=== PATIENT | female | born 1950 | race Caucasian/White ===

== ENCOUNTER 2016-07-20 14:00 | Outpatient (CLI) | payer MEDICARE, OTHER | END 2016-07-20 14:01 | disposition home or self-care (01) | LOC: HPCALD 14:00 | PROVIDERS: ATTEND Family Medicine | DX: M54.9 Dorsalgia, unspecified (principal); R82.90 Unspecified abnormal findings in urine; R10.9 Unspecified abdominal pain | CPT/HCPCS: 87077; 87086 ==

== ENCOUNTER 2016-08-14 10:12 | Outpatient (CLI) | payer MEDICARE, OTHER | END 2016-08-14 10:13 | disposition home or self-care (01) | LOC: HPCALD 10:12 | PROVIDERS: ATTEND Family Medicine | DX: E03.9 Hypothyroidism, unspecified (principal) | CPT/HCPCS: 36415; 84443 ==

== ENCOUNTER 2016-09-10 19:00 | Emergency (ER) | payer MEDICARE, OTHER ==
[2016-09-10] MEDS ORDERED: Tetracaine HCl 0.5% Ophth Soln 2 ML Bottle ONE (20:05)
[2016-09-10] MEDS ORDERED: Fluorescein Opthalmic Strip ONE (20:06)
== END 2016-09-10 20:57 | disposition home or self-care (01) ==
LOC: BURERS 19:00
DX: S05.01XA Injury of conjunctiva and corneal abrasion without foreign body, right eye, initial encounter (principal); Z86.73 Personal history of transient ischemic attack (TIA), and cerebral infarction without residual deficits; I10 Essential (primary) hypertension; Z87.891 Personal history of nicotine dependence; Z79.899 Other long term (current) drug therapy; X58.XXXA Exposure to other specified factors, initial encounter; Y92.009 Unspecified place in unspecified non-institutional (private) residence as the place of occurrence of the external cause
CPT/HCPCS: 99283

== ENCOUNTER 2017-02-06 07:43 | Outpatient (CLI) | payer MEDICARE, OTHER | END 2017-02-06 07:44 | disposition home or self-care (01) | LOC: BURLAB 07:43 | PROVIDERS: ATTEND Family Medicine | DX: R10.9 Unspecified abdominal pain (principal); E27.9 Disorder of adrenal gland, unspecified | CPT/HCPCS: 36415; 82565 ==

== ENCOUNTER 2017-02-07 08:46 | Outpatient (CLI) | payer MEDICARE, OTHER ==
--- NOTE | 2017-02-07 23:27 | CT ---
CT ABDOMEN AND PELVIS WITHOUT CONTRAST: 02/07/17 Initially, a noncontrast study was performed to rule out renal calculi in this patient with left fla nk pain. Additionally, it was done to recheck a known left adrenal mass. comparison was made with e prior CT dated 08/31/16. Coronal and sagittal reconstructions were done, including attention to the lumbar spine. The images were checked after the noncontrast study, and given no change in the appear ance of the adrenal mass, a contrast study was avoided. The lung bases are clear. There is a small hiatal hernia. Diffuse fatty infiltration of the liver is present. There has been a prior cholecystectomy. The sple en, pancreas, and abdominal aorta showed no acute findings. Regarding the kidneys, each kidney has a somewhat extrarenal pelvis. They appear no different than on the prior study. There is no ureteral dilation, renal stones or ureteral stones appreciated. There is no hydronephrosis. Regarding the left adrenal mass, today it measures 1.6 x 1.5 cm (prior measurements 1.7 x 1.5). The noncontrast CT numbers averaged 42 units on today's study (41 before). Thus, there has been no cm e in the size or density of the mass since the prior study. This makes a benign process more likely. The bowel is nondistended. There is significant sigmoid diverticulosis. Currently there were no conv incing findings of diverticulitis. No free air or free fluid was seen. CT of the pelvis showed no pelvic masses, fluid collections, or inflammatory changes. Views of the lumbar spine were obtained as part of this study. There was no area of fracture or bony destruction. Some mild facet arthritis is beginning at the L4-L5 and L5-S1 levels. In the low thoracic region, there was no sign of herniation, foraminal stenosis or central canal trupti nosis. At L1-L2, there was a questionable right paracentral disc bulge. My understanding is this is on the opposite side of the patient's pain. Unless she were to have a radiculopathy at approximately the L2 dermatome or so, then the finding might be artifactual. The L2-L3, L3-L4, L4-L5, and L5-S1 levels showed no sign of disc protrusions, foraminal stenosis or central canal stenosis. There was some minor concentric bulging of the L3-L4 and L5-S1 discs. IMPRESSION: 1. No evidence of renal or ureteral calculi to suggest the reason for left flank pain. 2. Sigmoid diverticulosis without findings of diverticulitis. 3. Left adrenal mass stable and unchanged in size and density since the prior scan. 4. Diffuse fatty infiltration of the liver. 5. Small hiatal hernia. 6. No acute lumbar finding. There is a small area of increased density in the right paracentral region of L1-L2. While theoretically it could be a small disc herniation, it does not seem to corre late with the current pain and there is a possibility it could be artifactual. Correlate with clinic al exam and symptoms. POS: HOME
== END 2017-02-07 08:47 | disposition home or self-care (01) ==
LOC: BURCT 08:46
PROVIDERS: ATTEND Family Medicine
DX: E27.9 Disorder of adrenal gland, unspecified (principal); R10.9 Unspecified abdominal pain; K57.30 Diverticulosis of large intestine without perforation or abscess without bleeding; K76.0 Fatty (change of) liver, not elsewhere classified; K44.9 Diaphragmatic hernia without obstruction or gangrene
CPT/HCPCS: 74176

== ENCOUNTER 2017-02-19 11:44 | Outpatient (CLI) | payer MEDICARE, OTHER ==
[2017-02-19 12:25] LABS: #Basophils 0.1 thou/uL (0.0-0.2); #Eosinphils 0.8 thou/uL (0.0-0.7); #Monocytes 0.5 thou/uL (0.11-0.59); #Neutrophils 5.7 thou/uL (1.40-6.50); %Basophils 0.9 % (0.0-1.0); %Eosinophils 8.6 % (0.0-10.0); %Lymphocytes 22.2 % (21.0-51.0); %Neutrophils 63.3 % (42.0-75.0); Hemoglobin 14.8 g/dL (12.0-16.0); Mean Corpuscular Hemoglobin 30.1 pg (27.0-31.0); Mean Corpuscular Volume 88.6 fl (81.0-99.0); Mean Platelet Volume 6.5 fL (7.4-10.4); Platelet Count 186 thou/uL (130-400); RBC Distribution Width 11.8 % (11.5-14.5); Red Blood Cell (RBC) Count 4.91 mill/uL (4.20-5.40)
[2017-02-19 12:43] LABS: ALT (SGPT) 44 U/L (8-55); AST (SGOT) 32 U/L (5-34); Albumin 4.2 g/dL (3.4-4.8); Alkaline Phosphatase 90 U/L (40-150); Anion Gap 15 mmol/L (10-20); BUN (Urea Nitrogen) 11 mg/dL (9.8-20.1); Bilirubin, Total 0.6 mg/dL (0.2-1.2); Calc. Creatinine Clearance 0 mL/min (70-130); Carbon Dioxide 22 mmol/L (23-31); Cardiac Risk 5.8 (Less than 4.5); Chloride 109 mmol/L (98-107); Cholesterol 174 mg/dl (< 200 Desired); Estimated GFR-MDRD 66; Globulin 2.9 g/dL (2.4-3.5); Glucose 110 mg/dL (80-115); HDL Cholesterol 30 mg/dL (>60 Neg Risk); LDL Cholesterol, Calculated 109 mg/dL; Potassium 4.4 mmol/L (3.5-5.1); Protein, Total 7.1 g/dL (6.0-8.3); Sodium 142 mmol/L (136-145); Triglycerides 174 mg/dL (Less than 150)
== END 2017-02-19 11:45 | disposition home or self-care (01) ==
LOC: HPCALD 11:44
PROVIDERS: ATTEND Family Medicine
DX: E03.9 Hypothyroidism, unspecified (principal); E78.2 Mixed hyperlipidemia; I10 Essential (primary) hypertension
CPT/HCPCS: 80053; 80061; 84443; 85025

== ENCOUNTER 2018-02-13 08:01 | Outpatient (CLI) | payer MEDICARE, OTHER ==
--- NOTE | 2018-02-13 15:40 | CT ---
CT OF ABDOMEN AND PELVIS PERFORMED WITH AND WITHOUT CONTRAST ENHANCEMENT: 02/13/18 HISTORY: Left adrenal mass. COMPARISON: A 02/07/17 study. The lung bases are clear. There are some fatty changes of the liver which measures 16 cm in length. The spleen is a somewhat el ongated spleen. It measures in the 12 cm range. The pancreas is unremarkable and the gallbladder has been removed. Small hiatal hernia is noted. A left adrenal mass is demonstrated. It has CT Hounsfield unit numbers of 39 on the precontrast image s, 46 on the immediate postcontrast and on delayed postcontrast images has values of approximately 69 Hounsfield units. In reviewing the previous 08/31/16 and 01/28/17 study, the lesion remains stable in si ze at 16 mm suggesting a benign etiology. Right and left kidneys are normal in size. No renal calculi are noted. Slightly prominent extrarenal pelvises are seen bilaterally and some slight prominence t o both ureters probably on the basis of some mild bladder distention. There are small periaortic and aortocaval nodes present. Postoperative changes in the midline of the abdominal wall are again noted. Colonic diverticulosis is seen without any definite inflammatory change. CT OF PELVIS PERFORMED WITH AND WITHOUT CONTRAST ENHANCEMENT: No adenopathy or mass. Fairly pronounced sigmoid diverticulosis is present. IMPRESSION: 1. Stable approximately 16 mm left adrenal mass. 2. Fatty changes of the liver. 3. Postop cholecystectomy change. 4. Small hiatal hernia. 5. Colonic diverticulosis most pronounced in the sigmoid colon region. POS: [facility]
== END 2018-02-13 08:02 | disposition home or self-care (01) ==
LOC: BURCT 08:01
PROVIDERS: ATTEND Family Medicine
DX: E27.9 Disorder of adrenal gland, unspecified (principal); K76.0 Fatty (change of) liver, not elsewhere classified; K57.30 Diverticulosis of large intestine without perforation or abscess without bleeding; K44.9 Diaphragmatic hernia without obstruction or gangrene; Z90.49 Acquired absence of other specified parts of digestive tract
CPT/HCPCS: 74178

== ENCOUNTER 2018-09-14 09:09 | Emergency (ER) | payer MEDICARE, OTHER ==
[2018-09-14 09:50] LABS: Bacteria/HPF Rare-Few HPF (None Seen); Bilirubin Negative (Negative); Blood, Urine Moderate (Negative); Clarity SLIGHTLY (Clear); Crystals/HPF None Seen HPF (Negative); Glucose, Urine (Dipstick) Negative (Negative); Hyaline Casts/LPF NONE SEEN LPF (0-3 Hyaline); Leukocyte Moderate (Negative); Nitrite Negative (Negative); Other Casts/LPF None Seen LPF (0-3 Hyaline); Oval Fat Bodies/HPF None Seen HPF (None Seen); Protein, Urine (Dipstick) Negative (Neg-Trace); RBC/HPF 0-3 HPF (0-3); Renal Epithelial None Seen HPF (0-3); Sperm/HPF None Seen HPF (None Seen); Squamous Epithelial None Seen HPF (0-3); Transitional Epithelial NONE SEEN HPF (0-3); Trichomonas/HPF None Seen HPF (None Seen); Urobilinogen 0.2 mg/dL (0.2-1.0); Yeast-All Forms None Seen HPF (None Seen); pH, Urine 6.5 (5.0-9.0)
[2018-09-14] MEDS ORDERED: Ibuprofen 800 MG TAB ONE (09:51)
[2018-09-14] MEDS ORDERED: Phenazopyridine HCl 97.5 MG TABLET ONE (09:54)
--- NOTE | 2018-09-14 11:38 | CT ---
CT Stone Protocol 09/14/2018 9:44 AM HISTORY: Left-sided abdominal pain. Burning with urination. History of left adrenal mass. COMPARISON: 02/13/2018 and 02/23/2016 Technique: Multiple contiguous axial images were obtained and a CT of the abdomen and pelvis without IV contrast . Coronal reformats were performed. FINDINGS: This examination is limited for the evaluation of solid organs and vascular structures due to the lac k of intravenous contrast. Lower Chest: There is mild dependent bibasilar atelectasis Abdomen: Liver: There is decreased attenuation of the liver attributable to fatty infiltration. Gallbladder: Postcholecystectomy changes. Pancreas: within normal limits. Spleen: within normal limits. Adrenals: Stable left adrenal mass measuring approximately 1.6 cm. Right adrenal gland has a grossly normal nonenhanced CT appearance. Kidneys: No renal or ureteral calculi are visualized, and there is no evidence of hydronephrosis. No ureteral calculus is seen. Pelvis: Reproductive Organs: There is evidence of hysterectomy. Ureters: No ureteral calculi. Bladder: Within normal limits. Bowel: The small bowel is normal in caliber. There is evidence of colonic diverticulosis.The appendix is not visualized, but there are no secondary signs to suggest appendicitis. A small hiatal hernia is present. There is a duodenal diverticulum involving the proximal aspect third portion of the duode num. Lymph Nodes: No enlarged lymph nodes. Peritoneum: No free fluid, free air, or fluid collection. Vessels: Vascular calcifications are seen in the abdominal aorta and involving the iliac arteries.. Retroperitoneum: within normal limits. Abdominal Wall: Postsurgical changes with metallic wires in the anterior midline supra and infraumbil ical location is present related to prior surgery. Bones: Metallic densities overlie the right iliac bone and right sacral ala which may be related to p rior injury or postsurgical change. This is a stable finding. IMPRESSION: 1. No renal or ureteral calculi are seen bilaterally, and there is no hydronephrosis. 2. Fatty infiltration of the liver. 3. Small hiatal hernia. 4. Stable left adrenal nodule measuring 1.6 cm. 5. Colonic diverticulosis.
== END 2018-09-14 11:47 | disposition home or self-care (01) ==
LOC: BURERS 09:09
DX: N39.0 Urinary tract infection, site not specified (principal); I10 Essential (primary) hypertension; Z86.73 Personal history of transient ischemic attack (TIA), and cerebral infarction without residual deficits; Z87.891 Personal history of nicotine dependence; Z79.82 Long term (current) use of aspirin; Z79.899 Other long term (current) drug therapy
CPT/HCPCS: 74176; 81003; 81015; 87077; 87086; 87186

== ENCOUNTER 2019-02-02 11:42 | Outpatient (CLI) | payer MEDICARE, OTHER ==
--- NOTE | 2019-02-02 12:09 | RAD ---
Exam: Abdomen 2 views HISTORY: Flank pain FINDINGS: Midline surgical malik, right upper quadrant surgical clips are identified. Hyperdensity projecting over the right lower quadrant presents nonspecific metallic shrapnel in the right gluteal region. Findings are correlated on a film 09/14/2018. Bowel gas pattern is nonspecific. No suspicious densities in the abdomen and pelvis. No pneumoperiton eum. No differential air-fluid levels IMPRESSION: Nonspecific bowel gas pattern. No radiographic evidence of nephrolithiasis or ureterolith iasis.
== END 2019-02-02 11:43 | disposition home or self-care (01) ==
LOC: BURRAD 11:42
PROVIDERS: ATTEND Family Medicine
DX: R10.9 Unspecified abdominal pain (principal)
CPT/HCPCS: 74019

== ENCOUNTER 2019-06-23 13:30 | Outpatient (CLI) | payer MEDICARE, OTHER ==
--- NOTE | 2019-06-23 15:27 | RAD ---
RIGHT HIP 2 VIEWS: DATE: 06/23/2019. FINDINGS: No fracture, recent or remote, was appreciated. The hip joint was unremarkable in appearance and is normal in width. The adjacent pubic ring appears intact. IMPRESSION: No significant bony findings. Sometimes MRI can show causes for pain that the plain films cannot. POS: HOME
== END 2019-06-23 13:31 | disposition home or self-care (01) ==
LOC: BURRAD 13:30
PROVIDERS: ATTEND Chiropractor
DX: M25.551 Pain in right hip (principal)

== ENCOUNTER 2019-12-22 10:33 | Outpatient (CLI) | payer MEDICARE, OTHER ==
--- NOTE | 2019-12-22 18:12 | RAD ---
RIGHT ELBOW FOUR VIEWS: 12/22/19 No fracture, recent or remote, was seen. There is no joint effusion. There is ossification on the ole cranon at the attachment of the triceps tendon. IMPRESSION: No significant finding. POS: HOME
--- NOTE | 2019-12-22 18:13 | RAD ---
RIGHT MIDDLE FINGER: 12/22/19 There is a adolfo of bone on the ulnar side of the PIP joint. This could be either a tiny avulsion fro m a prior injury or it could be an unattached or incompletely attached osteophyte. No recent fracture s were seen. IMPRESSION: No definite acute findings. See above. POS: HOME
--- NOTE | 2019-12-22 18:15 | RAD ---
LEFT HAND THREE VIEWS: 12/22/19 Comparison is made with 09/01/2019 films of the wrist. No recent fracture was detected. Some degenerative changes are present in the first carpometacarpal j oint. There may be a few cystic changes in the lunate. Mild degenerative changes are seen in some of the IP joints. Regarding the thumb, I do not see any fracture, recent or remote here. IMPRESSION: Chronic changes but no acute findings. POS: HOME
== END 2019-12-22 10:34 | disposition home or self-care (01) ==
LOC: BURRAD 10:33
PROVIDERS: ATTEND Clinical Nurse Specialist Medical-Surgical
DX: M79.642 Pain in left hand (principal); M79.644 Pain in right finger(s); M25.521 Pain in right elbow

== ENCOUNTER 2020-07-04 08:02 | Emergency (ER) | payer MEDICARE, OTHER ==
[2020-07-04] MEDS ORDERED: Tetracaine 0.5% PF 4 ML BOT ONE (08:21)
[2020-07-04] MEDS ORDERED: Fluorescein Opthalmic Strip ONE (08:21)
== END 2020-07-04 09:10 | disposition home or self-care (01) ==
LOC: BURERS 08:02
DX: S05.02XA Injury of conjunctiva and corneal abrasion without foreign body, left eye, initial encounter (principal); I10 Essential (primary) hypertension; Z86.73 Personal history of transient ischemic attack (TIA), and cerebral infarction without residual deficits; Z87.891 Personal history of nicotine dependence
CPT/HCPCS: 99283

== ENCOUNTER 2021-03-05 12:46 | Emergency (ER) | payer MEDICARE, OTHER | END 2021-03-05 13:29 | disposition home or self-care (01) | LOC: BURERS 12:46 | DX: H66.91 Otitis media, unspecified, right ear (principal); I10 Essential (primary) hypertension; Z87.891 Personal history of nicotine dependence | CPT/HCPCS: 99282 ==

== ENCOUNTER 2021-07-17 08:37 | Emergency (ER) | payer MEDICARE, OTHER ==
[2021-07-17 09:28] LABS: Bilirubin Negative (Negative); Blood, Urine Negative (Negative); Clarity Clear (Clear); Glucose, Urine (Dipstick) Negative (Negative); Ketone, Urine 15 mg/dL (Negative); Leukocyte Negative (Negative); Nitrite Negative (Negative); Protein, Urine (Dipstick) Negative (Neg-Trace); Urobilinogen 0.2 mg/dL (Less than 2)
[2021-07-17] MEDS ORDERED: Acetaminophen 325 MG TAB ONE (09:29)
[2021-07-17 09:39] LABS: #Basophils 0.1 thou/uL (0.0-0.2); #Eosinphils 0.2 thou/uL (0.0-0.7); #Lymphocytes 1.9 thou/uL (1.20-3.40); #Monocytes 0.5 thou/uL (0.11-0.59); #Neutrophils 4.2 thou/uL (1.40-6.50); %Basophils 1.1 % (0.0-1.0); %Eosinophils 2.6 % (0.0-10.0); %Monocytes 6.7 % (0.0-10.0); %Neutrophils 61.6 % (42.0-75.0); Hemoglobin 16.3 g/dL (12.0-16.0); Mean Corpuscular Hemoglobin 29.8 pg (27.0-31.0); Mean Corpuscular Volume 87.6 fL (78.0-98.0); Mean Platelet Volume 7.2 fL (7.4-10.4); Platelet Count 180 thou/uL (130-400); RBC Distribution Width 11.4 % (11.5-14.5); Red Blood Cell (RBC) Count 5.48 mill/uL (4.20-5.40); White Blood Cell (WBC) Count 6.8 thou/uL (4.8-10.8)
[2021-07-17 09:44] LABS: ALT (SGPT) 66 U/L (8-55); AST (SGOT) 48 U/L (5-34); Albumin 4.5 g/dL (3.4-4.8); Alkaline Phosphatase 63 U/L (40-110); Anion Gap 17 mmol/L (10-20); BUN (Urea Nitrogen) 7 mg/dL (9.8-20.1); Bilirubin, Total 0.7 mg/dL (0.2-1.2); Calc. Creatinine Clearance 0 mL/min (70-130); Calcium 10.1 mg/dL (7.8-10.44); Carbon Dioxide 22 mmol/L (23-31); Chloride 103 mmol/L (98-107); Globulin 3.7 g/dL (2.4-3.5); Glucose 182 mg/dL (83-110); Lipase 33 U/L (8-78); Potassium 4.2 mmol/L (3.5-5.1); Protein, Total 8.2 g/dL (5.8-8.1); Sodium 138 mmol/L (136-145)
== END 2021-07-17 10:20 | disposition home or self-care (01) ==
LOC: BURERS 08:37
DX: K57.32 Diverticulitis of large intestine without perforation or abscess without bleeding (principal); J10.1 Influenza due to other identified influenza virus with other respiratory manifestations; I10 Essential (primary) hypertension; Z87.891 Personal history of nicotine dependence; Z79.82 Long term (current) use of aspirin; Z79.899 Other long term (current) drug therapy; Z86.16 Personal history of COVID-19
CPT/HCPCS: 71045; 74176; 80053; 81003; 83690; 85025; 87081; 87430; 87804

== ENCOUNTER 2021-08-12 16:52 | Emergency (ER) | payer OTHER, MEDICARE ==
[2021-08-12] MEDS ORDERED: Boostrix 0.5 ML (Tdap) VIAL ONE (17:20)
[2021-08-12] MEDS ORDERED: Bacitracin 1 PK ONE (17:23)
== END 2021-08-12 17:49 | disposition home or self-care (01) ==
LOC: BURERS 16:52
DX: S81.051A Open bite, right knee, initial encounter (principal); I10 Essential (primary) hypertension; W54.0XXA Bitten by dog, initial encounter; Z23 Encounter for immunization; Z87.891 Personal history of nicotine dependence; Z79.82 Long term (current) use of aspirin; Z79.899 Other long term (current) drug therapy
CPT/HCPCS: 90471; 90715

== ENCOUNTER 2022-02-22 07:32 | Emergency (ER) | payer MEDICARE, OTHER ==
[2022-02-22] MEDS ORDERED: Ketorolac Tromethamine 30 MG/ML VIAL ONE (08:31)
[2022-02-22 08:41] LABS: Bilirubin Negative (Negative); Blood, Urine Trace (Negative); Clarity Slightly Cloudy (Clear); Glucose, Urine (Dipstick) Negative (Negative); Ketone, Urine > or equal to 80 mg/dL (Negative); Leukocyte Negative (Negative); Nitrite Negative (Negative); Protein, Urine (Dipstick) Trace mg/dL (Neg-Trace); Specific Gravity, Urine 1.025 (1.005-1.030); Urobilinogen 0.2 mg/dL (Less than 2); pH, Urine 5.5 (5.0-9.0)
[2022-02-22 08:52] LABS: SARS-CoV-2 NAA Rapid Test Not Detected (NotDetected)
[2022-02-22 08:55] LABS: Bacteria/HPF Rare-Few HPF (None Seen); RBC/HPF 0-3 HPF (0-3); Squamous Epithelial 0-3 HPF (0-3); WBC/HPF 0-3 HPF (0-3)
[2022-02-22 09:04] LABS: #Eosinphils 0.1 thou/uL (0.0-0.7); #Lymphocytes 0.3 thou/uL (1.20-3.40); #Monocytes 0.3 thou/uL (0.11-0.59); %Basophils 0.7 % (0.0-1.0); %Eosinophils 1.6 % (0.0-10.0); %Lymphocytes 5.8 % (21.0-51.0); %Neutrophils 86.9 % (42.0-75.0); Hemoglobin 15.2 g/dL (12.0-16.0); Mean Corpuscular HGB CONC 35.3 g/dL (32.0-36.0); Mean Corpuscular Hemoglobin 30.8 pg (27.0-31.0); Mean Corpuscular Volume 87.1 fL (78.0-98.0); Mean Platelet Volume 7.7 fL (7.4-10.4); Platelet Count 106 thou/uL (130-400); Platelet Morphology Comment Appears Decreased; RBC Distribution Width 11.7 % (11.5-14.5); RBC Morphology Normal; Red Blood Cell (RBC) Count 4.95 mill/uL (4.20-5.40); White Blood Cell (WBC) Count 5.7 thou/uL (4.8-10.8)
[2022-02-22 09:05] LABS: ALT (SGPT) 35 U/L (8-55); AST (SGOT) 29 U/L (5-34); Alkaline Phosphatase 54 U/L (40-110); Anion Gap 14 mmol/L (10-20); BUN (Urea Nitrogen) 10 mg/dL (9.8-20.1); Bilirubin, Total 0.5 mg/dL (0.2-1.2); Calc. Creatinine Clearance 0 mL/min (70-130); Calcium 9.3 mg/dL (7.8-10.44); Carbon Dioxide 20 mmol/L (23-31); Chloride 108 mmol/L (98-107); Estimated GFR 68; Globulin 2.8 g/dL (2.4-3.5); Glucose 162 mg/dL (83-110); Potassium 4.2 mmol/L (3.5-5.1); Protein, Total 6.8 g/dL (5.8-8.1); Sodium 138 mmol/L (136-145)
[2022-02-22] MEDS ORDERED: Morphine 4 MG/ML VIAL ONE (09:59)
== END 2022-02-22 10:47 | disposition home or self-care (01) ==
LOC: BURERS 07:32
DX: B34.9 Viral infection, unspecified (principal); I10 Essential (primary) hypertension; Z20.822 Contact with and (suspected) exposure to COVID-19; Z87.891 Personal history of nicotine dependence
CPT/HCPCS: 0240U; 71045; 80053; 83605; 83880; 84484; 85025; 96374; 96375; 99284; 81003; 81015; J1885; J2270